=== PATIENT | male | born 1970 | race Caucasian/White ===

== ENCOUNTER 2024-08-20 09:44 | Emergency (ER) | payer MEDICAID ==
[~2024-08-20] VITALS: Ht 167.6 cm; Wt 90.9 kg
[2024-08-20 09:46] VITALS: TEMP 99.1
[2024-08-20 10:28] LABS: PLATELET COUNT (AUTO) 358 K/uL (150-450); RED BLOOD CELL COUNT(AUTO) 5.05 MIL/uL (4.50-5.90); RED CELL DISTRIBUTION WIDTH 13.0 % (11.5-14.5); WHITE BLOOD COUNT (AUTO) 15.5 K/uL (4.5-11.0)
[2024-08-20 10:37] LABS: CALCIUM, TOTAL 9.6 mg/dL (8.8-10.5); CREATININE 0.97 mg/dL (0.60-1.30); GLOMERULAR FILTR. RATE CALC > 60 mL/min (>60); GLUCOSE,RANDOM 308 mg/dL (70-110); SODIUM SERUM 132 mmol/L (136-145); UREA NITROGEN, BLOOD 17 mg/dL (7-18)
[2024-08-20 10:42] LABS: TROPONIN I-HIGH SENSITIVITY 5 ng/L (<76)
[2024-08-20 11:33] LABS: APPEARANCE,URINE CLEAR (CLEAR); GLUCOSE, URINE (UA) >=1000 mg/dL (NEGATIVE); LEUKOCYTE ESTERASE ,URINE NEGATIVE (NEGATIVE); NITRATE,URINE NEGATIVE (NEGATIVE); OCCULT BLOOD,URINE NEGATIVE (NEGATIVE); SPECIFIC GRAVITIY, URINE 1.037 (1.003-1.030)
[2024-08-20] MEDS: MAG HYDROX/ALUMINUM HYD/SIMETH ES 30 ML SUSPENSION UDCUP PO ONE (11:42)
[2024-08-20] MEDS: PANTOPRAZOLE SODIUM 40 MG/VIAL IVP ONE (11:42)
[2024-08-20 13:41] VITALS: BP 151/96; PULSE 61; RESP 18; O2SAT 96
[2024-08-20] MEDS ORDERED: METF-81 PO (14:20)
[2024-08-20] MEDS ORDERED: FAMO20 PO (14:23)
== END 2024-08-20 14:38 | disposition home or self-care (01) ==
LOC: EMS 09:46
DX: K29.70 Gastritis, unspecified, without bleeding (principal); R11.0 Nausea; R73.9 Hyperglycemia, unspecified; F12.90 Cannabis use, unspecified, uncomplicated
CPT/HCPCS: 99285; 96374; 71045; 80048; 81001; 84484; 85025; 36415; 82962; 93005; J2470